=== PATIENT | female | born 1985 | race Native Hawaiian/Other Pacific Islander ===

== ENCOUNTER 2016-06-21 15:56 | Emergency (ER) | payer MEDICAID ==
[~2016-06-21] VITALS: Ht 162.6 cm; Wt 80.7 kg
[2016-06-21 16:07] VITALS: BP 115/78; PULSE 96; RESP 16; TEMP 97.9; O2SAT 98
--- NOTE | 2016-06-21 16:48 | PD ---
HPI Chief Complaint: Cold / Flu Symptoms Time Seen by Provider: 16:48 Travel History International Travel<30 days: No Contact w/Intl Traveler<30days: No Traveled to known affect area: No History of Present Illness HPI 30-year-old female presents to the emergency Department with complaint of cough , nasal congestion, body aches 4 days. Also reports pins and needles in her throat. Denies lump in throat, difficulty swallowing, unusual drooling. Reports painful swallowing. Reports left ear pain. Denies fever, chills, nausea, vomiting. Denies chest pain, shortness of breath, abdominal pain. Has taken NyQuil and DayQuil with good relief of symptoms. Allergies to Lortab and tramadol. Denies significant past medical history. No other modifying factors or associated signs and symptoms. PFSH Past Medical History Medical History: Denies Significant Hx Diminished Hearing: No Gastrointestinal Disorders: Yes Immunizations Current: Yes Tetanus Vaccination: < 5 Years Influenza Vaccination: No ?: Unknown LMP: 05/19/16 : 3 Para: 2 Miscarriage: 1 : 0 Ovarian Cysts: Yes Past Surgical History Cholecystectomy: Yes (2006) Social History Alcohol Use: No Tobacco Use: Yes ("SMOKE FLAVORED TOBACCO MAYBE ONCE A MONTH") Substance Use: No Allergies-Medications (Allergen,Severity, Reaction): Coded Allergies: Tramadol (Verified Allergy, Severe, Itching and rash-SEVER SOB, 06/21/16) Lortab (Verified Allergy, Intermediate, RESPIRATORY, 06/21/16) pt states does not have a allergy to this medicaiton 09/15/15 Reported Meds & Prescriptions Reported Meds & Active Scripts Active Magic Mouthwash Adult Liq (Multi-Ingredient Mouthwash/Gargle) 120 Ml Susp 5 Ml SWISH-SPIT Q3HR PRN Each 5 mL contains: Nystatin 200,000 units, Diphenhydramine 4.25 mg, Viscous Lidocaine 10 mg, Huang syrup 0.8 mL Ibuprofen 800 Mg Tab 800 Mg PO Q6HR PRN Nasonex Nasal [place] (Mometasone Furoate) 50 Mcg/Act Naspr 2 [place] EACH NARE DAILY PRN Review of Systems Except as stated in HPI: all other systems reviewed are Neg Physical Exam Narrative GENERAL: Well-nourished, well-developed female patient, in no acute distress; afebrile, nontoxic-appearing SKIN: Warm and dry. No rash. HEAD: Atraumatic. Normocephalic. EYES: Pupils equal and round at 3 mm with brisk reaction. No scleral icterus. No injection or drainage. PERRLA. ENT: Mucosa pink and moist. No erythema or exudates. No uvular edema. No uvular , palatal, or tonsillar deviation. Airway patent. EARS: Bilateral pinnae and external canals appear within normal limits. Bilateral tympanic membranes without erythema, dullness or perforation. NECK: Trachea midline. No lymphadenopathy. CARDIOVASCULAR: Regular rate and rhythm. No murmur appreciated. RESPIRATORY: No accessory muscle use. Clear to auscultation. Breath sounds equal bilaterally. GASTROINTESTINAL: Abdomen soft, non-tender, nondistended. Hepatic and splenic margins not palpable. Bowel sounds are active 4 quadrants. MUSCULOSKELETAL: No obvious deformities. No clubbing. No cyanosis. No edema. NEUROLOGICAL: Awake and alert. Oriented 3. No obvious cranial nerve deficits. Motor grossly within normal limits. Normal speech. Moves all extremities. 5/5 strength to all extremities. PSYCHIATRIC: Appropriate mood and affect; insight and judgment normal. Data Data Last Documented VS Vital Signs Date Time Temp Pulse Resp B/P Pulse Ox O2 Delivery O2 Flow Rate FiO2 06/21/16 16:16 16 98 Room Air 06/21/16 16:07 97.9 96 115/78 Orders Group A Rapid Strep Screen (06/21/16 16:48) Influenzae A/B Antigen (06/21/16 16:48) Strep Culture (Group A) (06/21/16 17:00) [facility] Medical Decision Making Medical Screen Exam Complete: Yes Emergency Medical Condition: Yes Medical Record Reviewed: Yes Differential Diagnosis Viral illness, influenza, strep pharyngitis Narrative Course 30-year-old female physical exam and history of present illness consistent with viral illness. Patient is afebrile and nontoxic-appearing. Denies fever home. Planing of sore throat. Denies libido, unusual drooling, difficulty swallowing. I offered the patient a nonnarcotic for her bodyaches and she declined at this time. Influenza and rapid strep ordered. 1736: Negative for influenza and strep. Discussed viral illness and symptomatic management patient verbalized understanding and agreement. Nasonex , Magic mouthwash and ibuprofen prescribed for home. Patient is medically cleared and stable for discharge. Discussed reasons to return to the emergency department. Instructed patient to follow up with primary care provider. Patient agrees with treatment plan. The patients vital signs are stable and the patient is stable for outpatient follow-up and treatment. Patient discharged home, stable and in no acute distress. Diagnosis Primary Impression: Viral illness Referrals: Primary Care Physician Patient Instructions: Cold Symptoms (ED), General Instructions, Safe Use of Cough and Cold Medicines (ED) Departure Forms: Tests/Procedures, Work Release Enter return to work date: Jun 23, 2016 Additional Instructions: Ibuprofen or Tylenol as directed and as needed to reduce fever Qcxm-juy-qqdrrfk antihistamines or decongestants as directed and as needed for symptom management Get plenty of sleep/rest Drink plenty of fluids to prevent dehydration [place] diet to encourage nutrition such as crackers, fruit, applesauce, toast, soup etc. Use an air humidifier/turn off ceiling fans Follow-up with your primary care provider Return immediately to the emergency department with worsening of symptoms Med/Other Pt SpecificInfo: Prescription(s) given Scripts Bwwihvji-Csszbqwvyobdooi-Pvgsqnmqb Liq (Magic Mouthwash Adult Liq)120 Ml Susp5 Ml SWISH-SPIT Q3HR PRN (SORE THROAT) #120 ML Ref 0 Each 5 mL contains: Nystatin 200,000 units, Diphenhydramine 4.25 mg, Viscous Lidocaine 10 mg, Huang syrup 0.8 mL Prov:Jasmina Lee 06/21/16 Ibuprofen 800 Mg Psc140 Mg PO Q6HR PRN (PAIN) #30 TAB Ref 0 Prov:Jasmina Lee 06/21/16 Mometasone Nasal [place] (Nasonex Nasal [place])50 Mcg/Act Naspr2 [place] EACH NARE DAILY PRN (NASAL CONGESTION) #1 BOTTLE Ref 0 Prov:Jasmina Lee 06/21/16 Disposition: 01 DISCHARGE HOME Condition: Stable Jasmina Lee Jun 21, 2016 16:48
[2016-06-21] MEDS ORDERED: MAGICADU2 SWISH-SPIT (17:37)
[2016-06-21] MEDS ORDERED: IBUP800T23 PO (17:37)
[2016-06-21] MEDS ORDERED: MOME17I EACH NARE (17:37)
== END 2016-06-21 18:04 | disposition home or self-care (01) ==
LOC: PHEFT 15:56
DX: B34.9 Viral infection, unspecified (principal); R05 Cough; R09.81 Nasal congestion; M79.1 Myalgia; R13.10 Dysphagia, unspecified; H92.02 Otalgia, left ear; Z72.0 Tobacco use
CPT/HCPCS: 87081; 87804; 87880; 99283

== ENCOUNTER 2016-08-09 15:13 | Emergency (ER) | payer MEDICAID, OTHER ==
[~2016-08-09] VITALS: Ht 162.6 cm; Wt 80.0 kg
[~2016-08-09 15:13] MED LIST: IBUP800T23 PO; MAGICADU2 SWISH-SPIT; MOME17I EACH NARE
[2016-08-09 15:16] VITALS: BP 126/86; PULSE 90; RESP 15; TEMP 97.3; O2SAT 99
--- NOTE | 2016-08-09 15:55 | PD ---
HPI Chief Complaint: Back/ Neck Pain or Injury Time Seen by Provider: 15:52 Travel History International Travel<30 days: No Contact w/Intl Traveler<30days: No Traveled to known affect area: No History of Present Illness HPI Patient is a 31-year-old female presenting to emergency evaluation of upper back and neck pain. Patient states she pulled out a sofa bed at work 3 days ago , over the course of the last 2 days her pain has become worse. Patient states it's painful to bend her head forward and backwards. Her back hurts if she tries to move her arms. She denies any numbness or tingling or weakness. Patient has not taken any medications trialed any conservative measurements to relieve the pain at home. Patient has no significant past medical history. [facility] Past Medical History Medical History: Denies Significant Hx Diminished Hearing: No Gastrointestinal Disorders: Yes Immunizations Current: Yes ?: Not LMP: 07/29/16 : 3 Para: 2 Miscarriage: 1 : 0 Ovarian Cysts: Yes Past Surgical History Cholecystectomy: Yes (2006) Social History Alcohol Use: No Tobacco Use: Yes ("SMOKE FLAVORED TOBACCO MAYBE ONCE A MONTH-[email or web address]) Substance Use: No Allergies-Medications (Allergen,Severity, Reaction): Coded Allergies: Tramadol (Verified Allergy, Severe, Itching and rash-SEVER SOB, 08/09/16) Lortab (Verified Allergy, Intermediate, RESPIRATORY, 08/09/16) pt states does not have a allergy to this medicaiton 09/15/15 Reported Meds & Prescriptions Reported Meds & Active Scripts Active No Active Prescriptions or Reported Medications Review of Systems Except as stated in HPI: all other systems reviewed are Neg Musculoskeletal: Positive: Myalgias, Cramping, Pain Physical Exam Narrative GENERAL: Well-nourished, well-developed patient. SKIN: Warm and dry. HEAD: Normocephalic. EYES: No scleral icterus. No injection or drainage. NECK: Supple, trachea midline. No JVD or lymphadenopathy. CARDIOVASCULAR: Regular rate and rhythm without murmurs, gallops, or rubs. RESPIRATORY: Breath sounds equal bilaterally. No accessory muscle use. GASTROINTESTINAL: Abdomen soft, non-tender, nondistended. MUSCULOSKELETAL: No cyanosis, or edema. Tenderness to palpation in paraspinal musculature in the cervical and thoracic region. Full range of motion with rotation of neck. Patient is able to flex and extend neck slowly. 5/5 muscle strength in all 4 extremities. Patient is neurovascularly intact. BACK: Nontender without obvious deformity. No CVA tenderness. Data Data Last Documented VS Vital Signs Date Time Temp Pulse Resp B/P Pulse Ox O2 Delivery O2 Flow Rate FiO2 08/09/16 15:16 97.3 90 15 126/86 99 Orders Ketorolac Inj (Toradol Inj) (08/09/16 16:00) Orphenadrine Inj (Norflex Inj) (08/09/16 16:00) [facility] Medical Decision Making Medical Screen Exam Complete: Yes Emergency Medical Condition: Yes Interpretation(s) Vital Signs Date Time Temp Pulse Resp B/P Pulse Ox O2 Delivery O2 Flow Rate FiO2 08/09/16 15:16 97.3 90 15 126/86 99 Differential Diagnosis Sprain versus strain versus spasm versus discogenic pain versus other Narrative Course Patient is a 31-year-old female presenting to emergency department for evaluation of neck and back pain after attempting to pull out a sofa bed bed at work 3 days ago. Patient has not trialed any iifn-hfo-xqeuywp therapies. Patient is neurologically intact. Patient will be given Toradol and Norflex in the emergency department, will monitor for response. Patient was reassessed at 1650, she reports significant improvement almost complete resolution in her symptoms. Advised she will given prescriptions for an anti-inflammatory as well as a muscle relaxer. She is encouraged to take them consistently for 24-48 hours and then as needed. She is encouraged to apply warm moist heat to affected area, continue range of motion exercises, avoid bed rest. She verbalized understanding of these instructions. Patient is stable for discharge. Diagnosis Primary Impression: Muscle strain Additional Impression: Muscle spasm Referrals: Primary Care Physician Patient Instructions: General Instructions, Muscle Spasm (ED), Muscle Strain ( ED) Additional Instructions: Follow-up with her primary doctor Take medications as directed Apply warm moist heat to the affected area, continue range of motion exercises, avoid bed rest Return to emergency department for any new or worsening symptoms Med/Other Pt SpecificInfo: Prescription(s) given Scripts Cyclobenzaprine (Flexeril)10 Mg Tab10 Mg PO TID PRN (MUSCLE SPASM) 10 Days Ref 0 Prov:Yulissa Titus 08/09/16 Ibuprofen 800 Mg [id number] Mg PO Q8H PRN (Pain/Inflammation) 10 Days Ref 0 Prov:Yulissa Titus 08/09/16 Disposition: 01 DISCHARGE HOME Condition: Stable Yulissa Titus Aug 09, 2016 15:55
[2016-08-09] MEDS ORDERED: ORPHENADRINE INJ 60 MG/2 ML AMP IM ONE (16:00)
[2016-08-09] MEDS ORDERED: KETOROLAC TROMETHAMINE 60 MG/2 ML (IM) VIAL IM ONE (16:00)
[2016-08-09] MEDS ORDERED: CYCL1TAB29 PO (16:55)
[2016-08-09] MEDS ORDERED: IBUP800T23 PO (16:55)
== END 2016-08-09 17:16 | disposition home or self-care (01) ==
LOC: NETRI 15:13
DX: S16.1XXA Strain of muscle, fascia and tendon at neck level, initial encounter (principal); M54.6 Pain in thoracic spine; M62.838 Other muscle spasm; X50.0XXA Overexertion from strenuous movement or load, initial encounter; Y99.0 Civilian activity done for income or pay; Z72.0 Tobacco use
CPT/HCPCS: 96372; 99283; J1885; J2360

== ENCOUNTER 2016-09-30 19:08 | Emergency (ER) | payer MEDICAID, OTHER ==
[~2016-09-30] VITALS: Ht 162.6 cm; Wt 82.0 kg
[~2016-09-30 19:08] MED LIST changes: +CYCL1TAB29 PO; -MAGICADU2 SWISH-SPIT; -MOME17I EACH NARE
[2016-09-30 19:20] VITALS: BP 105/66; PULSE 64; RESP 16; TEMP 98.3; O2SAT 99
[2016-09-30 19:45] VITALS: RESP 16; O2SAT 99
[2016-09-30 19:52] LABS: BLOOD, URINE NEG (NEG); GLUCOSE,URINE NEG (NEG); KETONE, URINE NEG (NEG); NITRITE,URINE NEG (NEG)
[2016-09-30 19:55] LABS: URINE COLOR YELLOW (YELLW/STRAW)
[2016-09-30 19:57] LABS: COMMENT (UR) CATH-CULT NOT IND; CULTURE IF INDICATED CATH CULTURE NOT IND; SQUAMOUS EPITHELIAL CELL URINE 0-5 /hpf (0-5); WBC, URINE 0-2 /hpf (0-5)
[2016-09-30] MEDS ORDERED: SODIUM CHLOR 0.9% 1000 ML INJ 1,000 ML IV SCH (20:23)
[2016-09-30] MEDS ORDERED: MORPHINE SULFATE 4 MG/ML INJ IV PUSH ONE (20:30)
[2016-09-30] MEDS ORDERED: SODIUM CHLORIDE 0.9% FLUSH 10 ML FLUSH IV FLUSH PRN (20:30)
[2016-09-30] MEDS ORDERED: ONDANSETRON HCL 4 MG/2 ML VIAL IV PUSH ONE (20:30)
--- NOTE | 2016-09-30 20:30 | PD ---
HPI Chief Complaint: Flank/Kidney Pain Time Seen by Provider: 19:43 Travel History International Travel<30 days: No Contact w/Intl Traveler<30days: No Traveled to known affect area: No History of Present Illness HPI 31-year-old female presents to the emergency department for Complaint of 4 days of epigastric right upper quadrant and right flank pain. Patient states pain is fairly constant and dull description. Pain is 6/10 in intensity. Does not report any associated fever chills nausea vomiting diarrhea or dysuria. No prior history of kidney stones. Patient is status post cholecystectomy. Patient is 3 para 2 AB 1. Patient denies history. Patient states that she is unable to identify exacerbating symptoms but notes that apply direct pressure by pushing on the abdominal wall or the flank provide some relief of discomfort. Patient denies any injury or trauma. Patient states acetaminophen and ibuprofen provided no relief of symptoms. No report of change in bowel. No hematemesis no coffee-ground emesis no bilious emesis no melena hematochezia and no hematuria. PFSH Past Medical History Narrative Medical Cholecystectomy Ab1; nursing notes reviewed Medical History: Denies Significant Hx Diminished Hearing: No Gastrointestinal Disorders: Yes Immunizations Current: Yes Tetanus Vaccination: > 5 Years Influenza Vaccination: No ?: Not LMP: 09/11/16 : 3 Para: 2 Miscarriage: 1 : 0 Ovarian Cysts: Yes Past Surgical History Cholecystectomy: Yes (2006) Social History Alcohol Use: No Tobacco Use: No Substance Use: No Allergies-Medications (Allergen,Severity, Reaction): Coded Allergies: Tramadol (Verified Allergy, Severe, Itching and rash-SEVER SOB, 09/30/16) Lortab (Verified Allergy, Intermediate, RESPIRATORY, 09/30/16) pt states does not have a allergy to this medicaiton 09/15/15 Reported Meds & Prescriptions Reported Meds & Active Scripts Active Flexeril (Cyclobenzaprine HCl) 10 Mg Tab 10 Mg PO TID PRN 10 Days Ibuprofen 800 Mg Tab 800 Mg PO Q8H PRN 10 Days Review of Systems Except as stated in HPI: all other systems reviewed are Neg General / Constitutional: No: Fever Eyes: No: Visual changes HENT: No: Headaches, Lightheadedness, Congestion Cardiovascular: No: Chest Pain or Discomfort Respiratory: No: Shortness of Breath, Pleuritic Pain Gastrointestinal: Positive: Abdominal Pain, No: Vomiting Genitourinary: Positive: Flank Pain, No: Dysuria Musculoskeletal: No: Myalgias, Arthralgias Skin: No Rash Neurologic: No: Weakness Psychiatric: No: Anxiety Endocrine: No: Heat Intolerance Hematologic/Lymphatic: No: Lymph Node Enlargement Physical Exam Narrative GENERAL: Well-developed well-nourished female in no acute distress no respiratory distress SKIN: Warm and dry. No erythema induration vesicular pustular rash petechiae or purpura HEAD: Normocephalic. EYES: No scleral icterus. No injection or drainage. NECK: Supple, trachea midline. No JVD or lymphadenopathy. CARDIOVASCULAR: Regular rate and rhythm without murmurs, gallops, or rubs. RESPIRATORY: Breath sounds equal bilaterally. No accessory muscle use. GASTROINTESTINAL: Abdomen soft, epigastric and right upper quadrant tenderness to direct palpation without guarding or rebound no focal tenderness for clinical Pastrana sign or at McBurney's point, nondistended. MUSCULOSKELETAL: No cyanosis, or edema. BACK: Nontender without obvious deformity. Right-sided CVA tenderness. Data Data Last Documented VS Vital Signs Date Time Temp Pulse Resp B/P Pulse Ox O2 Delivery O2 Flow Rate FiO2 09/30/16 21:25 16 09/30/16 21:20 63 120/66 100 Room Air 09/30/16 19:20 98.3 Orders Urinalysis - C+S If Indicated (09/30/16 19:35) Complete Blood Count With Diff (09/30/16 20:23) Comprehensive Metabolic Panel (09/30/16 20:23) Lipase (09/30/16 20:23) Iv Access Insert/Monitor (09/30/16 20:23) Ecg Monitoring (09/30/16 20:23) Oximetry (09/30/16 20:23) Sodium Chlor 0.9% 1000 Ml Inj (Ns 1000 M (09/30/16 20:23) Sodium Chloride 0.9% Flush (Ns Flush) (09/30/16 20:30) Ed Urine Pregnancytest Poc (09/30/16 20:23) Ct Abd/Pel W Iv Contrast(Rout) (09/30/16 ) Ondansetron Inj (Zofran Inj) (09/30/16 20:30) Morphine Inj (Morphine Inj) (09/30/16 20:30) Iohexol 350 Inj (Omnipaque 350 Inj) (09/30/16 22:16) Labs Laboratory Tests Test 09/30/16 09/30/16 19:35 19:45 Urine Color YELLOW Urine Turbidity CLEAR Urine pH 7.0 Urine Specific [place] 1.020 Urine Protein NEG mg/dL Urine Glucose (UA) NEG mg/dL Urine Ketones NEG mg/dL Urine Occult Blood NEG Urine Nitrite NEG Urine Bilirubin NEG Urine Leukocyte Esterase NEG Urine WBC 0-2 /hpf Urine Squamous Epithelial 0-5 /hpf Cells Urine Amorphous Sediment FEW Microscopic Urinalysis Comment CATH-CULT NOT IND White Blood Count 7.6 TH/MM3 Red Blood Count 4.34 MIL/MM3 Hemoglobin 12.0 GM/DL Hematocrit 36.1 % Mean Corpuscular Volume 83.1 FL Mean Corpuscular Hemoglobin 27.7 PG Mean Corpuscular Hemoglobin 33.3 % Concent Red Cell Distribution Width 12.9 % Platelet Count 222 TH/MM3 Mean Platelet Volume 10.0 FL Neutrophils (%) (Auto) 51.6 % Lymphocytes (%) (Auto) 35.6 % Monocytes (%) (Auto) 11.4 % Eosinophils (%) (Auto) 0.9 % Basophils (%) (Auto) 0.5 % Neutrophils # (Auto) 3.9 TH/MM3 Lymphocytes # (Auto) 2.7 TH/MM3 Monocytes # (Auto) 0.9 TH/MM3 Eosinophils # (Auto) 0.1 TH/MM3 Basophils # (Auto) 0.0 TH/MM3 CBC Comment DIFF FINAL Differential Comment Sodium Level 140 MEQ/L Potassium Level 3.7 MEQ/L Chloride Level 104 MEQ/L Carbon Dioxide Level 26.3 MEQ/L Anion Gap 10 MEQ/L Blood Urea Nitrogen 11 MG/DL Creatinine 0.55 MG/DL Estimat Glomerular Filtration 129 ML/MIN Rate Random Glucose 76 MG/DL Calcium Level 9.0 MG/DL Total Bilirubin 0.2 MG/DL Aspartate Amino Transf 11 U/L (AST/SGOT) Alanine Aminotransferase 20 U/L (ALT/SGPT) Alkaline Phosphatase 52 U/L Total Protein 8.1 GM/DL Albumin 4.0 GM/DL Lipase 232 U/L [facility] Medical Decision Making Medical Screen Exam Complete: Yes Emergency Medical Condition: Yes Medical Record Reviewed: Yes Interpretation(s) POC hcg: negative UA: wnl LFT's, lipase: wnl Last Impressions Abdomen/Pelvis CT 09/30/16 0000 Signed Impressions: Service Date/Time: Friday, September 30, 2016 21:50 - CONCLUSION: Minimal free pelvic fluid. 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 Patient is pain-free. Patient is stable for outpatient management and follow-up with her primary care provider. Patient given prescription for Anaprox DS. Diagnosis Primary Impression: Abdominal pain Referrals: Primary Care Physician call for appointment Patient Instructions: General Instructions Additional Instructions: Increase fluid hydration Follow-up with primary care provider call office on Monday to schedule appointment Take Anaprox as prescribed as needed; do not take voft-aao-dnuixeh ibuprofen/ Advil/Motrin or Naprosyn/naproxen/Aleve while taking this prescription medication Return to the emergency department for any concerns or change in condition May take acetaminophen/Tylenol as often as every 4-6 hours as needed for fever 100.4F or greater Med/Other Pt SpecificInfo: Prescription(s) given Scripts Naproxen Sodium DS (Anaprox DS)550 Mg [id number] Mg PO Q12HR #14 TAB Ref 0 Prov:Ashlie Eddy MD 09/30/16 Disposition: 01 DISCHARGE HOME Condition: Stable Ashlie Eddy MD Sep 30, 2016 20:30
[2016-09-30 20:51] LABS: AUTOMATED NEUTROPHIL # 3.9 TH/MM3 (1.8-7.7); BASOPHIL % 0.5 % (0.0-2.0); EOSINOPHIL # 0.1 TH/MM3 (0-0.4); EOSINOPHIL % 0.9 % (0.0-4.0); HEMATOCRIT 36.1 % (35.0-46.0); HEMO FLAGS DIFF FINAL; LYMPH % 35.6 % (9.0-44.0); LYMPHOCYTE # 2.7 TH/MM3 (1.0-4.8); MEAN CELL VOLUME 83.1 FL (80.0-100.0); MEAN CORPUSCULAR HEMOGLOBIN 27.7 PG (27.0-34.0); MEAN CORPUSCULAR HGB CONC 33.3 % (32.0-36.0); MONO % 11.4 % (0.0-8.0); NEUT % 51.6 % (16.0-70.0); PLATELET COUNT 222 TH/MM3 (150-450); RED BLOOD COUNT 4.34 MIL/MM3 (4.00-5.30); RED CELL DISTRIBUTION WIDTH 12.9 % (11.6-17.2); WHITE BLOOD COUNT 7.6 TH/MM3 (4.0-11.0)
[2016-09-30 20:59] LABS: CHLORIDE 104 MEQ/L (98-107); POTASSIUM 3.7 MEQ/L (3.5-5.1); SODIUM (NA) 140 MEQ/L (136-145)
[2016-09-30 21:03] LABS: ANION GAP 10 MEQ/L (5-15); BICARBONATE 26.3 MEQ/L (21.0-32.0); BLOOD UREA NITROGEN 11 MG/DL (7-18)
[2016-09-30 21:06] LABS: ALT (GPT) 20 U/L (10-53); AST (GOT) 11 U/L (15-37); GLOMERULAR FILTRATION RATE 129 ML/MIN (>89)
[2016-09-30 21:07] LABS: TOTAL BILIRUBIN ADULT 0.2 MG/DL (0.2-1.0)
[2016-09-30 21:08] LABS: ALKALINE PHOSPHATASE 52 U/L (45-117)
[2016-09-30 21:20] VITALS: BP 120/66; PULSE 63; RESP 16; O2SAT 100
[2016-09-30 21:25] VITALS: RESP 16
[2016-09-30] MEDS ORDERED: IOHEXOL 350 MG/ML 10 ML VIAL (for RAD DIAG) IV ONE (22:16)
--- NOTE | 2016-09-30 22:34 | RADHPO ---
EXAM DATE/TIME: 09/30/2016 21:50 [facility] COMPARISON: No previous studies available for comparison. INDICATIONS : Right sided flank pain for five days. IV CONTRAST: 95 cc Omnipaque 350 (iohexol) IV ORAL CONTRAST: No oral contrast ingested. RADIATION DOSE: 13.89 CTDIvol (mGy) MEDICAL HISTORY : Ovarian cysts. SURGICAL HISTORY : Cholecystectomy. ENCOUNTER: Initial ACUITY: 4 - 6 days PAIN SCALE: 7/10 LOCATION: Right flank TECHNIQUE: Volumetric scanning of the abdomen and pelvis was performed. Using automated exposure control and ad justment of the mA and/or kV according to patient size, radiation dose was kept as low as reasonably achievable to obtain optimal diagnostic quality images. FINDINGS: LOWER LUNGS: The visualized lower lungs are clear. LIVER: Homogeneous density without lesion. There is no dilation of the biliary tree. Gallbladder surgically absent. SPLEEN: Normal size without lesion. PANCREAS: Within normal limits. KIDNEYS: Normal in size and shape. There is no mass, stone or hydronephrosis. ADRENAL GLANDS: Within normal limits. VASCULAR: There is no aortic aneurysm. BOWEL/MESENTERY: The stomach, small bowel, and colon demonstrate no acute abnormality. There is no free intraperitone al air or fluid. ABDOMINAL WALL: Within normal limits. RETROPERITONEUM: There is no lymphadenopathy. BLADDER: No wall thickening or mass. REPRODUCTIVE: Small volume of free pelvic fluid. INGUINAL: There is no lymphadenopathy or hernia. MUSCULOSKELETAL: Within normal limits for patient age. CONCLUSION: Minimal free pelvic fluid. No acute CT findings Shane Ballard MD on September 30, 2016 at 22:30 Board Certified Radiologist. This report was verified electronically.
[2016-09-30] MEDS ORDERED: NAPR550 PO (23:19)
== END 2016-09-30 23:40 | disposition home or self-care (01) ==
LOC: PHED 19:08
DX: R10.11 Right upper quadrant pain (principal); R10.13 Epigastric pain
CPT/HCPCS: 74177; 80053; 81001; 83690; 84703; 85025; 96374; 96375; 99284; J2270; J2405; J7030; Q9967

== ENCOUNTER 2016-11-11 21:21 | Emergency (ER) | payer MEDICAID, OTHER ==
[~2016-11-11] VITALS: Ht 162.6 cm; Wt 79.5 kg
[~2016-11-11 21:21] MED LIST changes: +NAPR550 PO
[2016-11-11 21:24] VITALS: BP 134/77; PULSE 80; RESP 16; TEMP 98.2; O2SAT 100
[2016-11-11] MEDS ORDERED: SODIUM CHLOR 0.9% 1000 ML INJ 1,000 ML IV ONE (21:30)
[2016-11-11 21:45] VITALS: BP_SYST 113; BP_SYST 123; BP_SYST 132; BP_DIAS 70; BP_DIAS 72; BP_DIAS 74; RESP 16
[2016-11-11 21:45] LABS: AUTOMATED NEUTROPHIL # 5.1 TH/MM3 (1.8-7.7); BASOPHIL # 0.1 TH/MM3 (0-0.2); BASOPHIL % 1.2 % (0.0-2.0); EOSINOPHIL # 0.1 TH/MM3 (0-0.4); EOSINOPHIL % 1.1 % (0.0-4.0); HEMATOCRIT 34.9 % (35.0-46.0); HEMO FLAGS DIFF FINAL; LYMPHOCYTE # 3.3 TH/MM3 (1.0-4.8); MEAN CELL VOLUME 82.2 FL (80.0-100.0); MEAN CORPUSCULAR HEMOGLOBIN 28.2 PG (27.0-34.0); MEAN CORPUSCULAR HGB CONC 34.3 % (32.0-36.0); MONO % 9.8 % (0.0-8.0); NEUT % 52.9 % (16.0-70.0); PLATELET COUNT 239 TH/MM3 (150-450); RED BLOOD COUNT 4.25 MIL/MM3 (4.00-5.30); RED CELL DISTRIBUTION WIDTH 12.5 % (11.6-17.2); WHITE BLOOD COUNT 9.5 TH/MM3 (4.0-11.0)
[2016-11-11 21:50] LABS: CHLORIDE 106 MEQ/L (98-107); SODIUM (NA) 139 MEQ/L (136-145)
--- NOTE | 2016-11-11 21:52 | PD ---
HPI Chief Complaint: General Weakness Time Seen by Provider: 21:23 Travel History International Travel<30 days: No Contact w/Intl Traveler<30days: No Traveled to known affect area: No History of Present Illness HPI This 31-year-old female says that she felt very weak earlier today. She was at work during the day and felt okay. She does say she only drank 1 glass of water throughout the day. She has had some loose stools last 4 days. She says that she started getting shaky that she is given a pass out. She sat down and rested and felt better and should this happen again. When himself on the floor because she was afraid she was given a fall. She did not have a loss of consciousness. There is no history of trauma. She has had some episodes of fainting in the past. She doesn't think she is but she is not sure. PFSH Past Medical History Diminished Hearing: No Gastrointestinal Disorders: Yes Immunizations Current: Yes ?: Unknown LMP: 10/11/16 : 3 Para: 2 Miscarriage: 1 : 0 Ovarian Cysts: Yes Past Surgical History Cholecystectomy: Yes (2006) Social History Alcohol Use: No Tobacco Use: Yes ([employer]) Substance Use: No Allergies-Medications (Allergen,Severity, Reaction): Coded Allergies: Tramadol (Verified Allergy, Severe, Itching and rash-SEVER SOB, 09/30/16) Lortab (Verified Allergy, Intermediate, RESPIRATORY, 09/30/16) pt states does not have a allergy to this medicaiton 09/15/15 Reported Meds & Prescriptions Reported Meds & Active Scripts Active Anaprox DS (Naproxen Sodium) 550 Mg Tab 550 Mg PO Q12HR Flexeril (Cyclobenzaprine HCl) 10 Mg Tab 10 Mg PO TID PRN 10 Days Ibuprofen 800 Mg Tab 800 Mg PO Q8H PRN 10 Days Review of Systems General / Constitutional: No: Fever, Chills Eyes: No: Diploplia, Blurred Vision HENT: Positive: Lightheadedness, No: Headaches Cardiovascular: No: Chest Pain or Discomfort, Palpitations Respiratory: No: Cough, Shortness of Breath Gastrointestinal: Positive: Diarrhea, No: Nausea Genitourinary: No: Frequency Musculoskeletal: No: Myalgias Skin: No Itching Neurologic: Positive: Weakness, Dizziness, No: Syncope, Focal Abnormalities, Headache, Seizures Psychiatric: No: Anxiety, Depression Hematologic/Lymphatic: No: Easy Bruising Physical Exam Narrative GENERAL: Well-developed female SKIN: Focused skin assessment warm/dry. HEAD: Atraumatic. Normocephalic. EYES: Pupils equal and round. No scleral icterus. No injection or drainage. ENT: No nasal bleeding or discharge. Mucous membranes pink and moist. NECK: Trachea midline. No JVD. CARDIOVASCULAR: Regular rate and rhythm. No murmur appreciated. RESPIRATORY: No accessory muscle use. Clear to auscultation. Breath sounds equal bilaterally. GASTROINTESTINAL: Abdomen soft, non-tender, nondistended. Hepatic and splenic margins not palpable. MUSCULOSKELETAL: No obvious deformities. No clubbing. No cyanosis. No edema. NEUROLOGICAL: Awake and alert. No obvious cranial nerve deficits. Motor grossly within normal limits. Normal speech. PSYCHIATRIC: Appropriate mood and affect; insight and judgment normal. Data Data Last Documented VS Vital Signs Date Time Temp Pulse Resp B/P Pulse Ox O2 Delivery O2 Flow Rate FiO2 11/11/16 21:29 100 Room Air 11/11/16 21:24 98.2 80 16 134/77 Orders Electrocardiogram (11/11/16 21:23) Complete Blood Count With Diff (11/11/16 21:23) Comprehensive Metabolic Panel (11/11/16 21:23) Troponin I (11/11/16 21:23) Orthostatic Vital Signs (11/11/16 21:23) Ed Urine Pregnancytest Poc (11/11/16 21:23) Sodium Chlor 0.9% 1000 Ml Inj (Ns 1000 M (11/11/16 21:30) Labs Laboratory Tests Test 11/11/16 21:20 White Blood Count 9.5 TH/MM3 Red Blood Count 4.25 MIL/MM3 Hemoglobin 12.0 GM/DL Hematocrit 34.9 % Mean Corpuscular Volume 82.2 FL Mean Corpuscular Hemoglobin 28.2 PG Mean Corpuscular Hemoglobin 34.3 % Concent Red Cell Distribution Width 12.5 % Platelet Count 239 TH/MM3 Mean Platelet Volume 9.9 FL Neutrophils (%) (Auto) 52.9 % Lymphocytes (%) (Auto) 35.0 % Monocytes (%) (Auto) 9.8 % Eosinophils (%) (Auto) 1.1 % Basophils (%) (Auto) 1.2 % Neutrophils # (Auto) 5.1 TH/MM3 Lymphocytes # (Auto) 3.3 TH/MM3 Monocytes # (Auto) 0.9 TH/MM3 Eosinophils # (Auto) 0.1 TH/MM3 Basophils # (Auto) 0.1 TH/MM3 CBC Comment DIFF FINAL Differential Comment Sodium Level 139 MEQ/L Potassium Level 4.1 MEQ/L Chloride Level 106 MEQ/L Carbon Dioxide Level 26.7 MEQ/L Anion Gap 6 MEQ/L Blood Urea Nitrogen 7 MG/DL Creatinine 0.65 MG/DL Estimat Glomerular Filtration 106 ML/MIN Rate Random Glucose 81 MG/DL Calcium Level 8.5 MG/DL Total Bilirubin 0.3 MG/DL Aspartate Amino Transf 26 U/L (AST/SGOT) Alanine Aminotransferase 24 U/L (ALT/SGPT) Alkaline Phosphatase 53 U/L Troponin I LESS THAN 0.02 NG/ML Total Protein 7.7 GM/DL Albumin 3.8 GM/DL [facility] Medical Decision Making Medical Screen Exam Complete: Yes Emergency Medical Condition: Yes Medical Record Reviewed: Yes Differential Diagnosis Differential includes dysrhythmia, syncope, dehydration, Narrative Course test is negative. EKG shows normal sinus rhythm. Sodium is 139 with potassium 4.1. Hemoglobin is 12. Patient appears stable. She has had some diarrhea and didn't drink much today. I suspect she is dehydrated though her lab work is normal. She is stable for discharge Diagnosis Primary Impression: Dehydration Additional Instructions: Drink plenty of fluids Disposition: 01 DISCHARGE HOME Condition: Stable Galileo Hinson MD November 11, 2016 21:52
[2016-11-11 21:53] LABS: ANION GAP 6 MEQ/L (5-15); BICARBONATE 26.7 MEQ/L (21.0-32.0); BLOOD UREA NITROGEN 7 MG/DL (7-18)
[2016-11-11 21:56] LABS: ALT (GPT) 24 U/L (10-53); AST (GOT) 26 U/L (15-37); GLOMERULAR FILTRATION RATE 106 ML/MIN (>89)
[2016-11-11 21:57] LABS: POTASSIUM 4.1 MEQ/L (3.5-5.1)
[2016-11-11 21:58] LABS: TOTAL BILIRUBIN ADULT 0.3 MG/DL (0.2-1.0)
[2016-11-11 21:59] LABS: ALKALINE PHOSPHATASE 53 U/L (45-117)
[2016-11-11 22:34] VITALS: BP 125/72
--- NOTE | 2016-11-12 16:13 | EKG ---
Date Performed: 11/11/2016 Time Performed: 21:27:12 PTAGE: 31 years EKG: Within normal limits for age Since PREVIOUS TRACING , 04/17/2012, T-wave now inverted in V2, otherwise no significant change . PREVIOUS TRACIN04/17/2012 16.22 DOCTOR: Ubaldo Alves Interpretating Date/Time 11/12/2016 16:11:35
== END 2016-11-11 22:36 | disposition home or self-care (01) ==
LOC: PHED 21:21
DX: E86.0 Dehydration (principal); R19.7 Diarrhea, unspecified; R53.1 Weakness; R42 Dizziness and giddiness; Z79.899 Other long term (current) drug therapy; Z88.5 Allergy status to narcotic agent
CPT/HCPCS: 80053; 84484; 84703; 85025; 93005; 96360; 99284; J7030

== ENCOUNTER 2017-02-01 11:08 | Emergency (ER) | payer MEDICAID ==
[~2017-02-01] VITALS: Ht 162.6 cm; Wt 70.0 kg
[2017-02-01 11:13] VITALS: BP 111/63; PULSE 105; RESP 14; TEMP 98.4; O2SAT 98
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
[2017-02-01] MEDS ORDERED: METHOCARBAMOL 500 MG TAB PO ONE (12:00)
[2017-02-01] MEDS ORDERED: IBUPROFEN 600 MG TAB PO ONE (12:00)
[2017-02-01] MEDS ORDERED: ROBA750T PO (12:00)
[2017-02-01] MEDS ORDERED: IBUP-232 PO (12:00)
== END 2017-02-01 12:23 | disposition home or self-care (01) ==
LOC: PHEFT 11:08
DX: S86.111A Strain of other muscle(s) and tendon(s) of posterior muscle group at lower leg level, right leg, initial encounter (principal); Z72.0 Tobacco use; Z87.19 Personal history of other diseases of the digestive system; X58.XXXA Exposure to other specified factors, initial encounter; Y93.75 Activity, martial arts
CPT/HCPCS: 99283; E0113

== ENCOUNTER 2017-03-11 19:25 | Emergency (ER) | payer MEDICAID ==
[~2017-03-11 19:25] MED LIST changes: -CYCL1TAB29 PO; +IBUP-232 PO; -IBUP800T23 PO; -NAPR550 PO; +ROBA750T PO
[2017-03-11 19:36] VITALS: BP 115/56; PULSE 70; RESP 20; TEMP 79.4
[2017-03-11 21:30] VITALS: TEMP 97.8
[2017-03-11 22:00] LABS: AUTOMATED NEUTROPHIL # 4.1 TH/MM3 (1.8-7.7); BASOPHIL # 0.1 TH/MM3 (0-0.2); BASOPHIL % 1.1 % (0.0-2.0); EOSINOPHIL # 0.1 TH/MM3 (0-0.4); EOSINOPHIL % 1.3 % (0.0-4.0); HEMO FLAGS DIFF FINAL; LYMPH % 34.7 % (9.0-44.0); LYMPHOCYTE # 2.8 TH/MM3 (1.0-4.8); MEAN CELL VOLUME 83.2 FL (80.0-100.0); MEAN CORPUSCULAR HEMOGLOBIN 27.2 PG (27.0-34.0); MEAN CORPUSCULAR HGB CONC 32.7 % (32.0-36.0); MONO % 10.9 % (0.0-8.0); PLATELET COUNT 236 TH/MM3 (150-450); RED BLOOD COUNT 4.57 MIL/MM3 (4.00-5.30); RED CELL DISTRIBUTION WIDTH 13.6 % (11.6-17.2)
[2017-03-11 22:05] LABS: BLOOD, URINE NEG (NEG); GLUCOSE,URINE NEG (NEG); KETONE, URINE NEG (NEG); NITRITE,URINE NEG (NEG)
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
--- NOTE | 2017-03-11 22:09 | RADRPT ---
EXAM DATE/TIME: 03/11/2017 21:51 [facility] COMPARISON: No previous studies available for comparison. INDICATIONS : Chest pain. MEDICAL HISTORY : Ovarian cysts. SURGICAL HISTORY : Cholecystectomy. ENCOUNTER: Initial ACUITY: 1 day PAIN SCORE: 5/10 LOCATION: Bilateral chest FINDINGS: A single view of the chest demonstrates the lungs to be symmetrically aerated without evidence of mas s, infiltrate or effusion. The cardiomediastinal contours are unremarkable. Osseous structures are intact. CONCLUSION: No acute disease. Trent Garcia MD on March 11, 2017 at 22:07 Board Certified Radiologist. This report was verified electronically.
[2017-03-11 22:15] LABS: CHLORIDE 102 MEQ/L (98-107); POTASSIUM 3.7 MEQ/L (3.5-5.1); SODIUM (NA) 136 MEQ/L (136-145); URINE COLOR YELLOW (YELLW/STRAW)
[2017-03-11 22:16] LABS: MUCUS URINE FEW /lpf (OCC); SQUAMOUS EPITHELIAL CELL URINE 0-5 /hpf (0-5)
[2017-03-11 22:17] LABS: COMMENT (UR) CULT NOT INDICATED; CULTURE IF INDICATED CULT NOT INDICATED; WBC, URINE 0-2 /hpf (0-5)
[2017-03-11 22:18] LABS: ANION GAP 6 MEQ/L (5-15); BICARBONATE 28.5 MEQ/L (21.0-32.0); BLOOD UREA NITROGEN 12 MG/DL (7-18); MAGNESIUM 2.2 MG/DL (1.5-2.5)
[2017-03-11 22:21] LABS: GLOMERULAR FILTRATION RATE 176 ML/MIN (>89)
[2017-03-11] MEDS ORDERED: ALPR.25 PO (22:44)
--- NOTE | 2017-03-12 14:03 | EKG ---
Date Performed: 03/11/2017 Time Performed: 19:43:59 PTAGE: 31 years EKG: Sinus rhythm WITH SHORT ID INTERVAL BORDERLINE ECG PREVIOUS TRACING : 11/11/2016 21.27 Since previous tracing, no significant change. DOCTOR: Ubaldo Alves Interpretating Date/Time 03/12/2017 14:02:31
== END 2017-03-11 22:55 | disposition home or self-care (01) ==
LOC: PHED 19:25 → PHEFT 22:55
DX: F41.0 Panic disorder [episodic paroxysmal anxiety] (principal); R07.9 Chest pain, unspecified; Z72.0 Tobacco use; Z79.899 Other long term (current) drug therapy
CPT/HCPCS: 71010; 80048; 81001; 83735; 84443; 84484; 84703; 85025; 93005; 99285

== ENCOUNTER 2017-03-16 23:13 | Emergency (ER) | payer OTHER, MEDICAID ==
[~2017-03-16] VITALS: Ht 162.6 cm; Wt 80.0 kg
[~2017-03-16 23:13] MED LIST changes: +ALPR.25 PO; -IBUP-232 PO; -ROBA750T PO
[2017-03-16 23:15] VITALS: BP 117/58; PULSE 73; RESP 16; TEMP 98.1; O2SAT 97
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
[2017-03-17] MEDS ORDERED: DICL75TA PO (01:40)
[2017-03-17] MEDS ORDERED: ROBA750T PO (01:40)
[2017-03-17] MEDS ORDERED: CYCLOBENZAPRINE HCL 10 MG TAB PO ONE (01:45)
[2017-03-17] MEDS ORDERED: NAPROXEN 500 MG TAB PO ONE (01:45)
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
== END 2017-03-17 02:09 | disposition home or self-care (01) ==
LOC: NEPD 23:13
DX: S39.012A Strain of muscle, fascia and tendon of lower back, initial encounter (principal); M54.2 Cervicalgia; M54.6 Pain in thoracic spine; R51 Headache; Z72.0 Tobacco use; Z87.19 Personal history of other diseases of the digestive system; Z87.42 Personal history of other diseases of the female genital tract; V89.2XXA Person injured in unspecified motor-vehicle accident, traffic, initial encounter
CPT/HCPCS: 71010; 72050; 72072; 72110; 84703; 99284

== ENCOUNTER 2017-05-31 00:24 | Emergency (ER) | payer MEDICAID ==
[~2017-05-31] VITALS: Ht 162.6 cm; Wt 80.5 kg
[~2017-05-31 00:24] MED LIST changes: +DICL75TA PO; +ROBA750T PO
[2017-05-31 00:37] VITALS: BP 128/76; PULSE 63; RESP 12; TEMP 97.7; O2SAT 98
[2017-05-31] MEDS ORDERED: HYDR-3580 PO (00:52)
[2017-05-31] MEDS ORDERED: IBUP200C PO (00:53)
[2017-05-31] MEDS ORDERED: SODIUM CHLORIDE 0.9% FLUSH 10 ML FLUSH IVF PRN (01:00)
[2017-05-31] MEDS ORDERED: diphenhydrAMINE HCL 50 MG/ML VIAL IVP ONE (01:00)
[2017-05-31] MEDS ORDERED: ORPHENADRINE INJ 60 MG/2 ML AMP IM ONE (01:00)
[2017-05-31] MEDS ORDERED: METOCLOPRAMIDE HCL 10 MG/2 ML VIAL IVP ONE (01:00)
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
[2017-05-31 01:31] LABS: BLOOD, URINE NEG (NEG); GLUCOSE,URINE NEG (NEG); KETONE, URINE NEG (NEG); NITRITE,URINE NEG (NEG)
[2017-05-31 01:40] VITALS: PULSE 52; RESP 16; O2SAT 99
[2017-05-31 02:22] VITALS: BP 110/68; PULSE 54; RESP 16; O2SAT 98
[2017-05-31 02:26] LABS: URINE COLOR YELLOW (YELLW/STRAW)
[2017-05-31 02:27] LABS: BACTERIA, URINE OCC /hpf; COMMENT (UR) CULT NOT INDICATED; CULTURE IF INDICATED CULT NOT INDICATED; SQUAMOUS EPITHELIAL CELL URINE 0-5 /hpf (0-5)
== END 2017-05-31 02:42 | disposition home or self-care (01) ==
LOC: PHED 00:24
DX: S39.012A Strain of muscle, fascia and tendon of lower back, initial encounter (principal); R51 Headache; V89.2XXA Person injured in unspecified motor-vehicle accident, traffic, initial encounter
CPT/HCPCS: 81001; 84703; 96372; 96374; 96375; 99284; J1200; J2360; J2765

== ENCOUNTER 2017-06-04 15:35 | Emergency (ER) | payer MEDICAID ==
[~2017-06-04] VITALS: Ht 162.6 cm; Wt 80.5 kg
[~2017-06-04 15:35] MED LIST changes: -ALPR.25 PO; -DICL75TA PO; +HYDR-3580 PO; +IBUP200C PO; -ROBA750T PO
[2017-06-04 15:41] VITALS: BP 125/75; PULSE 63; RESP 18; TEMP 97.8; O2SAT 100
--- NOTE | 2017-06-04 15:51 | PD ---
HPI Chief Complaint: General Weakness Time Seen by Provider: 15:47 Travel History International Travel<30 days: No Contact w/Intl Traveler<30days: No Traveled to known affect area: No History of Present Illness HPI 31-year-old female patient with history of chronic back pains, presents to the ER today because she states that she felt like she was having palpitations, anxious, weak today and called EMS, EMS found her blood sugar to be 51, gave her dextrose, and she felt improved. She states that she was still having some symptoms now. She denies any recent fevers, any chest pains, shortness of breath, or other symptoms. Modifying Factors: None Associated Signs & Symptoms: Hypoglycemic episode, palpitations, anxiety, weak Risk Factors: None PFSH Past Medical History Diminished Hearing: No Gastrointestinal Disorders: Yes (GALLSTONES) Musculoskeletal: Yes (CHRONIC BACK PAIN FROM [facility] 02/2017) Immunizations Current: Yes ?: Not : 3 Para: 2 Miscarriage: 1 : 0 Ovarian Cysts: Yes Past Surgical History Cholecystectomy: Yes (2006) Social History Alcohol Use: No Tobacco Use: No (QUIT APRIL 2017) Substance Use: No Allergies-Medications (Allergen,Severity, Reaction): Coded Allergies: tramadol (Unverified Allergy, Severe, Itching and rash-SEVER SOB, 06/04/17 ) acetaminophen (Unverified Allergy, Intermediate, RESPIRATORY, 06/04/17) pt states does not have a allergy to this medicaiton 02/01/17 hydrocodone (Unverified Allergy, Intermediate, RESPIRATORY, 06/04/17) pt states does not have a allergy to this medicaiton 02/02/17 Reported Meds & Prescriptions Reported Meds & Active Scripts Active Reported Hydrocodone-Acetaminophen 7.5 Mg-325 Mg Tab 0.5 Tab PO BID Review of Systems Except as stated in HPI: all other systems reviewed are Neg Physical Exam Narrative GENERAL: Young female patient currently in no acute distress. Awake and oriented 3. SKIN: Focused skin assessment warm/dry. HEAD: Atraumatic. Normocephalic. EYES: Pupils equal and round. No scleral icterus. No injection or drainage. ENT: No nasal bleeding or discharge. Mucous membranes pink and moist. NECK: Trachea midline. No JVD. CARDIOVASCULAR: Regular rate and rhythm. No murmur appreciated. RESPIRATORY: No accessory muscle use. Clear to auscultation. Breath sounds equal bilaterally. GASTROINTESTINAL: Abdomen soft, non-tender, nondistended. Hepatic and splenic margins not palpable. MUSCULOSKELETAL: No obvious deformities. No clubbing. No cyanosis. No edema. NEUROLOGICAL: Awake and alert. No obvious cranial nerve deficits. Motor grossly within normal limits. Normal speech. PSYCHIATRIC: Appropriate mood and affect; insight and judgment normal. Data Data Last Documented VS Vital Signs Date Time Temp Pulse Resp B/P (MAP) Pulse Ox O2 Delivery O2 Flow Rate FiO2 06/04/17 16:27 84 20 109/68 (82) 96 06/04/17 15:41 97.8 Orders Orders Electrocardiogram (06/04/17 15:47) Complete Blood Count With Diff (06/04/17 15:47) Basic Metabolic Panel (Bmp) (06/04/17 15:47) Magnesium (Mg) (06/04/17 15:47) Ed Urine Pregnancytest Poc (06/04/17 15:47) Ed Discharge Order (06/04/17 17:06) Labs Laboratory Tests Test 06/04/17 16:22 White Blood Count 6.4 TH/MM3 Red Blood Count 4.54 MIL/MM3 Hemoglobin 12.1 GM/DL Hematocrit 37.5 % Mean Corpuscular Volume 82.6 FL Mean Corpuscular Hemoglobin 26.8 PG Mean Corpuscular Hemoglobin Concent 32.4 % Red Cell Distribution Width 12.6 % Platelet Count 225 TH/MM3 Mean Platelet Volume 9.7 FL Neutrophils (%) (Auto) 63.6 % Lymphocytes (%) (Auto) 24.2 % Monocytes (%) (Auto) 10.6 % Eosinophils (%) (Auto) 1.0 % Basophils (%) (Auto) 0.6 % Neutrophils # (Auto) 4.1 TH/MM3 Lymphocytes # (Auto) 1.5 TH/MM3 Monocytes # (Auto) 0.7 TH/MM3 Eosinophils # (Auto) 0.1 TH/MM3 Basophils # (Auto) 0.0 TH/MM3 CBC Comment DIFF FINAL Differential Comment Blood Urea Nitrogen 8 MG/DL Creatinine 0.53 MG/DL Random Glucose 81 MG/DL Calcium Level 8.6 MG/DL Magnesium Level 2.2 MG/DL Sodium Level 137 MEQ/L Potassium Level 3.7 MEQ/L Chloride Level 104 MEQ/L Carbon Dioxide Level 26.7 MEQ/L Anion Gap 6 MEQ/L Estimat Glomerular Filtration Rate 135 ML/MIN MDM Medical Decision Making Medical Screen Exam Complete: Yes Emergency Medical Condition: Yes Medical Record Reviewed: Yes Interpretation(s) EKG shows NSR, no ST elevation or depression, and no arrhythmias. No significant T-wave inversions. No signs of delta waves or QT prolongation. No dysrhythmias identified. Laboratory Tests Test 06/04/17 16:22 Mean Corpuscular Hemoglobin 26.8 PG (27.0-34.0) Monocytes (%) (Auto) 10.6 % (0.0-8.0) Differential Diagnosis Palpitations, general weakness: Dehydration versus metabolic issues versus viral syndrome versus anxiety attack versus dysrhythmias Narrative Course It appears that she may have had a mildly hypoglycemic episode. Her lab work was otherwise unremarkable here in the ER. Her symptoms had settled down. Her EKG did not show any dysrhythmias. She has not . Vital signs are stable in the ER and my plan would be to release her at this point would follow- up to primary care doctor. She should eat and drink on a consistent basis. She should return for any worsening in symptoms as needed. The plan has been discussed with her and she states understanding. She is not on any medications that would induce hypoglycemia. Diagnosis Primary Impression: Hypoglycemia Disposition: 01 DISCHARGE HOME Condition: Stable Yue Jaimes MD Jun 04, 2017 15:51
[2017-06-04 16:27] VITALS: BP 109/68; PULSE 84; RESP 20; O2SAT 96
[2017-06-04 16:47] LABS: AUTOMATED NEUTROPHIL # 4.1 TH/MM3 (1.8-7.7); BASOPHIL % 0.6 % (0.0-2.0); EOSINOPHIL # 0.1 TH/MM3 (0-0.4); HEMATOCRIT 37.5 % (35.0-46.0); HEMOGLOBIN 12.1 GM/DL (11.6-15.3); LYMPH % 24.2 % (9.0-44.0); LYMPHOCYTE # 1.5 TH/MM3 (1.0-4.8); MEAN CELL VOLUME 82.6 FL (80.0-100.0); MEAN CORPUSCULAR HEMOGLOBIN 26.8 PG (27.0-34.0); MEAN CORPUSCULAR HGB CONC 32.4 % (32.0-36.0); MEAN PLATELET VOLUME 9.7 FL (7.0-11.0); MONO % 10.6 % (0.0-8.0); MONOCYTE # 0.7 TH/MM3 (0-0.9); NEUT % 63.6 % (16.0-70.0); PLATELET COUNT 225 TH/MM3 (150-450); RED BLOOD COUNT 4.54 MIL/MM3 (4.00-5.30); RED CELL DISTRIBUTION WIDTH 12.6 % (11.6-17.2); WHITE BLOOD COUNT 6.4 TH/MM3 (4.0-11.0)
[2017-06-04 16:59] LABS: CALCIUM 8.6 MG/DL (8.5-10.1)
[2017-06-04 17:00] LABS: BICARBONATE 26.7 MEQ/L (21.0-32.0); MAGNESIUM 2.2 MG/DL (1.5-2.5)
[2017-06-04 17:03] LABS: CREATININE 0.53 MG/DL (0.50-1.00)
[2017-06-04 18:25] VITALS: BP 102/54; PULSE 86; RESP 19; O2SAT 100
--- NOTE | 2017-06-05 17:17 | EKG ---
Date Performed: 06/04/2017 Time Performed: 15:54:51 PTAGE: 31 years EKG: Sinus rhythm WITH SINUS ARRHYTHMIA Since previous tracing, no significant change noted NORMAL ECG PREVIOUS TRACING : 03/11/2017 19.43 DOCTOR: Mandy Rosales Interpretating Date/Time 06/05/2017 17:16:35
== END 2017-06-04 18:30 | disposition home or self-care (01) ==
LOC: PHED 15:35
DX: E16.2 Hypoglycemia, unspecified (principal); R00.2 Palpitations
CPT/HCPCS: 80048; 83735; 84703; 85025; 93005

== ENCOUNTER 2017-07-10 11:03 | Emergency (ER) | payer MEDICAID ==
[~2017-07-10] VITALS: Ht 162.6 cm; Wt 77.7 kg
[~2017-07-10 11:03] MED LIST changes: -IBUP200C PO
[2017-07-10 11:08] VITALS: BP 122/56; PULSE 134; RESP 16; TEMP 97.4; O2SAT 99
--- NOTE | 2017-07-10 11:27 | PD ---
HPI Chief Complaint: GI Complaint Time Seen by Provider: 11:15 Travel History International Travel<30 days: No Contact w/Intl Traveler<30days: No Traveled to known affect area: No History of Present Illness HPI The patient was seen and examined in the presence of the nurse. This patient complains of nausea and vomiting and diarrhea. Started this morning at 6 AM. Duration is 5 and half hours. She complains of generalized weakness. Her son has similar symptoms. No alleviating factors. No exacerbating factors. Severity of symptoms is moderate PFSH Past Medical History Hx Anticoagulant Therapy: No Diabetes: No Diminished Hearing: No Gastrointestinal Disorders: Yes (GALLSTONES) Musculoskeletal: Yes [place] [facility] [place] Immunizations Current: Yes Influenza Vaccination: No ?: Not : 3 Para: 2 Miscarriage: 1 : 0 Ovarian Cysts: Yes Past Surgical History Cholecystectomy: Yes (2006) Social History Alcohol Use: No Tobacco Use: Yes (FLAVORED TOBACCO OCCASIONALLY) Substance Use: No Allergies-Medications (Allergen,Severity, Reaction): Coded Allergies: tramadol (Unverified Allergy, Severe, Itching and rash-SEVER SOB, 07/10/17) acetaminophen (Unverified Allergy, Intermediate, RESPIRATORY, 07/10/17) pt states does not have a allergy to this medicaiton 02/01/17 hydrocodone (Unverified Allergy, Intermediate, RESPIRATORY, 07/10/17) pt states does not have a allergy to this medicaiton 02/02/17 Reported Meds & Prescriptions Reported Meds & Active Scripts Active Zofran (Ondansetron HCl) 4 Mg Tab 4 Mg PO Q6HR PRN Reported Hydrocodone-Acetaminophen 7.5 Mg-325 Mg Tab 7.5 Tab PO BID Review of Systems General / Constitutional: No: Fever Eyes: No: Visual changes HENT: No: Headaches Cardiovascular: No: Chest Pain or Discomfort Respiratory: No: Shortness of Breath Gastrointestinal: Positive: Nausea, Vomiting, Diarrhea, No: Abdominal Pain Genitourinary: No: Dysuria Musculoskeletal: Positive: Weakness, No: Pain Skin: No Rash Neurologic: Positive: Weakness Psychiatric: No: Depression Endocrine: No: Polydipsia Hematologic/Lymphatic: No: Easy Bruising Physical Exam Narrative GENERAL: Well-nourished, well-developed patient in no apparent distress. SKIN: Focused skin assessment reveals no rash and nodules. Skin is Warm and dry. HEAD: Atraumatic. Normocephalic. EYES: Pupils equal and round. No scleral icterus. No injection or drainage. ENT: No nasal bleeding or discharge. Mucous membranes pink and moist. NECK: Trachea midline. No JVD. CARDIOVASCULAR: Regular rate and rhythm. No murmur appreciated. RESPIRATORY: No accessory muscle use. Clear to auscultation. Breath sounds equal bilaterally. GASTROINTESTINAL: Abdomen soft, non-tender, nondistended. Hepatic and splenic margins not palpable. MUSCULOSKELETAL: No obvious deformities. No clubbing. No cyanosis. No edema. NEUROLOGICAL: Awake and alert. No obvious cranial nerve deficits. Motor grossly within normal limits. Normal speech. PSYCHIATRIC: Appropriate mood and affect; insight and judgment normal. Data Data Last Documented VS Vital Signs Date Time Temp Pulse Resp B/P (MAP) Pulse Ox O2 Delivery O2 Flow Rate FiO2 07/10/17 11:08 97.4 134 16 122/56 (78) 99 Orders Orders Complete Blood Count With Diff (07/10/17 11:24) Basic Metabolic Panel (Bmp) (07/10/17 11:24) Beta Hcg (Quant/Titer) (07/10/17 11:24) Iv Access Insert/Monitor (07/10/17 11:24) Ecg Monitoring (07/10/17 11:24) NPO (07/10/17 11:24) Ondansetron Inj (Zofran Inj) (07/10/17 11:30) Sodium Chloride 0.9% Flush (Ns Flush) (07/10/17 11:30) Sodium Chlor 0.9% 1000 Ml Inj (Ns 1000 M (07/10/17 11:30) Labs Laboratory Tests Test 07/10/17 11:35 White Blood Count 11.1 TH/MM3 Red Blood Count 5.24 MIL/MM3 Hemoglobin 13.9 GM/DL Hematocrit 43.6 % Mean Corpuscular Volume 83.1 FL Mean Corpuscular Hemoglobin 26.5 PG Mean Corpuscular Hemoglobin Concent 31.8 % Red Cell Distribution Width 12.9 % Platelet Count 259 TH/MM3 Mean Platelet Volume 9.7 FL Neutrophils (%) (Auto) 81.3 % Lymphocytes (%) (Auto) 9.0 % Monocytes (%) (Auto) 7.1 % Eosinophils (%) (Auto) 0.5 % Basophils (%) (Auto) 2.1 % Neutrophils # (Auto) 9.0 TH/MM3 Lymphocytes # (Auto) 1.0 TH/MM3 Monocytes # (Auto) 0.8 TH/MM3 Eosinophils # (Auto) 0.1 TH/MM3 Basophils # (Auto) 0.2 TH/MM3 CBC Comment DIFF FINAL Differential Comment Blood Urea Nitrogen 10 MG/DL Creatinine 0.63 MG/DL Random Glucose 86 MG/DL Calcium Level 8.5 MG/DL Sodium Level 137 MEQ/L Potassium Level 3.6 MEQ/L Chloride Level 105 MEQ/L Carbon Dioxide Level 24.6 MEQ/L Anion Gap 7 MEQ/L Estimat Glomerular Filtration Rate 110 ML/MIN Human Chorionic Gonadotropin, Quant LESS THAN 1 MIU/ML MDM Medical Decision Making Medical Screen Exam Complete: Yes Emergency Medical Condition: Yes Medical Record Reviewed: Yes Differential Diagnosis Dehydration, gastroenteritis, food poisoning Narrative Course I have reviewed the patient's electronic medical record. Patient is a frequent visitor to the ER. She came 9 times last year IV placed I gave her 1 L normal saline IV bolus and IV Zofran CBC is normal Metabolic profile is normal Beta hCG is negative Tachycardia is improved She is euvolemic in appearance Zofran prescribed Presentation consistent with an acute viral gastroenteritis Diagnosis Primary Impression: Nausea vomiting and diarrhea Additional Instructions: The patient was advised to follow up with their physician and return if they worsen. I have recommended clear liquids for 24 hours, then gradually advance as tolerated. Med/Other Pt SpecificInfo: Prescription(s) given Scripts Ondansetron (Zofran) 4 Mg Tab 4 MG PO Q6HR Y for NAUSEA OR VOMITING, #12 TAB 0 Refills Prov: Oniel Duarte MD 07/10/17 Disposition: 01 DISCHARGE HOME Condition: Stable Oniel Duarte MD Jul 10, 2017 11:27
[2017-07-10] MEDS ORDERED: ONDANSETRON HCL 4 MG/2 ML VIAL IV PUSH ONE (11:30)
[2017-07-10] MEDS ORDERED: SODIUM CHLOR 0.9% 1000 ML INJ 1,000 ML IV ONE (11:30)
[2017-07-10] MEDS ORDERED: SODIUM CHLORIDE 0.9% FLUSH 10 ML FLUSH IVF PRN (11:30)
[2017-07-10 11:48] LABS: BASOPHIL # 0.2 TH/MM3 (0-0.2); BASOPHIL % 2.1 % (0.0-2.0); EOSINOPHIL # 0.1 TH/MM3 (0-0.4); EOSINOPHIL % 0.5 % (0.0-4.0); HEMATOCRIT 43.6 % (35.0-46.0); HEMOGLOBIN 13.9 GM/DL (11.6-15.3); MEAN CELL VOLUME 83.1 FL (80.0-100.0); MEAN CORPUSCULAR HEMOGLOBIN 26.5 PG (27.0-34.0); MEAN CORPUSCULAR HGB CONC 31.8 % (32.0-36.0); MEAN PLATELET VOLUME 9.7 FL (7.0-11.0); MONO % 7.1 % (0.0-8.0); MONOCYTE # 0.8 TH/MM3 (0-0.9); NEUT % 81.3 % (16.0-70.0); PLATELET COUNT 259 TH/MM3 (150-450); RED BLOOD COUNT 5.24 MIL/MM3 (4.00-5.30); RED CELL DISTRIBUTION WIDTH 12.9 % (11.6-17.2); WHITE BLOOD COUNT 11.1 TH/MM3 (4.0-11.0)
[2017-07-10 11:55] LABS: CHLORIDE 105 MEQ/L (98-107); SODIUM (NA) 137 MEQ/L (136-145)
[2017-07-10 11:58] LABS: BICARBONATE 24.6 MEQ/L (21.0-32.0); BLOOD UREA NITROGEN 10 MG/DL (7-18); CALCIUM 8.5 MG/DL (8.5-10.1); GLUCOSE,RANDOM 86 MG/DL (74-106)
[2017-07-10 12:02] LABS: CREATININE 0.63 MG/DL (0.50-1.00); GLOMERULAR FILTRATION RATE 110 ML/MIN (>89)
[2017-07-10] MEDS ORDERED: ZOFR4TAB PO (12:13)
[2017-07-10 12:23] VITALS: BP 121/81; PULSE 112; RESP 16; O2SAT 100
== END 2017-07-10 12:45 | disposition home or self-care (01) ==
LOC: PHED 11:03
DX: R11.2 Nausea with vomiting, unspecified (principal); R19.7 Diarrhea, unspecified; G89.29 Other chronic pain; N83.209 Unspecified ovarian cyst, unspecified side; Z72.0 Tobacco use; Z88.8 Allergy status to other drugs, medicaments and biological substances; Z79.899 Other long term (current) drug therapy
CPT/HCPCS: 80048; 84702; 85025; 96361; 96374; 99284; J2405; J7030

== ENCOUNTER 2017-07-10 20:02 | Emergency (ER) | payer MEDICAID ==
[~2017-07-10] VITALS: Ht 162.6 cm; Wt 79.8 kg
[~2017-07-10 20:02] MED LIST changes: +ZOFR4TAB PO
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
[2017-07-10] MEDS ORDERED: ONDANSETRON HCL 4 MG/2 ML VIAL IV PUSH ONE ×2 (20:30→23:00)
[2017-07-10] MEDS ORDERED: SODIUM CHLOR 0.9% 1000 ML INJ 1,000 ML IV ONE ×2 (20:30)
[2017-07-10 20:33] VITALS: BP 107/58; PULSE 105; RESP 16; TEMP 98.9; O2SAT 100
[2017-07-10 21:33] VITALS: BP 119/61; PULSE 120; RESP 18; TEMP 99.1; O2SAT 100
[2017-07-10 21:47] VITALS: BP_SYST 109; BP_SYST 110; BP_SYST 116; BP_DIAS 51; BP_DIAS 58; BP_DIAS 67; RESP 22; RESP 24
[2017-07-10 21:58] LABS: BILIRUBIN, URINE NEG (NEG); BLOOD, URINE NEG (NEG); GLUCOSE,URINE NEG (NEG); KETONE, URINE 40 mg/dL (NEG); NITRITE,URINE NEG (NEG); URINE LEUKOCYTE ESTERASE NEG (NEG)
[2017-07-10 22:11] LABS: MUCUS URINE FEW /lpf (OCC); URINE COLOR YELLOW (YELLW/STRAW)
[2017-07-10 22:12] LABS: SQUAMOUS EPITHELIAL CELL URINE 0-5 /hpf (0-5); WBC, URINE 0-2 /hpf (0-5)
[2017-07-10 22:13] LABS: AMORPHOUS SEDIMENT, URINE SMALL
[2017-07-10 22:41] VITALS: BP 110/72; PULSE 101; RESP 16; TEMP 99; O2SAT 100
--- NOTE | 2017-07-11 17:36 | EKG ---
Date Performed: 07/10/2017 Time Performed: 20:22:12 PTAGE: 32 years EKG: Sinus rhythm POSSIBLE LEFT ATRIAL ENLARGEMENT NONSPECIFIC T-WAVE ABNORMALITY BORDERLINE ECG PREVIOUS TRACING : 06/04/2017 15.54 DOCTOR: Anu Henry Interpretating Date/Time 07/11/2017 17:29:06
== END 2017-07-10 23:10 | disposition home or self-care (01) ==
LOC: PHED 20:02
DX: K52.9 Noninfective gastroenteritis and colitis, unspecified (principal); R55 Syncope and collapse; E86.0 Dehydration; R94.31 Abnormal electrocardiogram [ECG] [EKG]; Z72.0 Tobacco use; Z88.8 Allergy status to other drugs, medicaments and biological substances; Z79.899 Other long term (current) drug therapy
CPT/HCPCS: 81001; 87081; 87804; 87880; 93005; 96361; 96374; 96376; 99284; J2405; J7030